=== PATIENT | female | born 1950 | race Caucasian/White ===

== ENCOUNTER 2018-05-26 13:42 | Emergency (ER) | payer OTHER ==
[~2018-05-26] VITALS: Ht 157.5 cm; Wt 61.4 kg
[~2018-05-26 13:42] MED LIST: BENADRYL25 MG PO; MEDDOSEPAK PO; NO HOME MEDS; PAROXETINE20 MG PO
[2018-05-26] MEDS ORDERED: XANAX0.5 MG PO (14:00)
[2018-05-26] MEDS ORDERED: CLEOCIN300 MG PO (14:18)
[2018-05-26 14:38] VITALS: BP 128/88
== END 2018-05-26 14:43 | disposition home or self-care (01) | DRG 603 ==
LOC: ED 13:42
DX: L02.12 Furuncle of neck (principal); F41.9 Anxiety disorder, unspecified

== ENCOUNTER 2018-06-01 13:12 | Emergency (ER) | payer OTHER ==
[~2018-06-01] VITALS: Ht 157.5 cm; Wt 64.0 kg
[~2018-06-01 13:12] MED LIST changes: +CLEOCIN300 MG PO; +XANAX0.5 MG PO
[2018-06-01] MEDS ORDERED: BACTRIM DS1 TAB PO (14:18)
[2018-06-01] MEDS ORDERED: TORADOL PO (14:18)
[2018-06-01 14:22] VITALS: BP 118/68
== END 2018-06-01 14:32 | disposition home or self-care (01) | DRG 603 ==
LOC: ED 13:12
PROC: 0H94XZZ Drainage of Neck Skin, External Approach (ICD-10-PCS; principal; 2018-06-01)
DX: L02.11 Cutaneous abscess of neck (principal); F41.9 Anxiety disorder, unspecified

== ENCOUNTER 2018-06-03 13:36 | Emergency (ER) | payer OTHER ==
[~2018-06-03] VITALS: Ht 157.5 cm; Wt 58.0 kg
[~2018-06-03 13:36] MED LIST changes: +BACTRIM DS1 TAB PO; +TORADOL PO
[2018-06-03 13:53] VITALS: BP 129/77
== END 2018-06-03 14:06 | disposition home or self-care (01) | DRG 951 ==
LOC: ED 13:36
DX: Z48.01 Encounter for change or removal of surgical wound dressing (principal)